=== PATIENT | female | born 1965 | race Caucasian/White ===

== ENCOUNTER → 2024-12-08 11:24 | Outpatient (REF) | payer OTHER, SELFPAY | LOC: HWWDC 11:24 | PROVIDERS: ATTENDING PHYSICIAN Family Medicine | DX: Z12.31 Encounter for screening mammogram for malignant neoplasm of breast (principal) | CPT/HCPCS: 77063; 77067 ==

== ENCOUNTER → 2024-12-22 10:20 | Outpatient (REF) | payer OTHER, SELFPAY | LOC: RAD 10:20 | PROVIDERS: ATTENDING PHYSICIAN Family Medicine | DX: Z85.43 Personal history of malignant neoplasm of ovary (principal); R74.8 Abnormal levels of other serum enzymes; R10.30 Lower abdominal pain, unspecified | CPT/HCPCS: 74177; Q9967 ==